=== PATIENT | male | born 1975 | race Asian ===

== ENCOUNTER 2023-04-06 10:28 | Outpatient (CLI) | payer BC | END 2023-04-06 10:29 | disposition home or self-care (01) | LOC: CSHLAB 10:28 | PROVIDERS: ATTEND Otolaryngology Otolaryngic Allergy | DX: Z01.818 Encounter for other preprocedural examination (principal); J32.4 Chronic pansinusitis | CPT/HCPCS: 93005; 93010 ==

== ENCOUNTER 2023-04-13 09:31 | Day surgery (SDC) | payer BC ==
[2023-04-06 10:56] VITALS: BMI 27.6
[2023-04-13] MEDS ORDERED: Glycopyrrolate 0.2 MG/ML 5 ML SYRINGE ONE (10:13)
[2023-04-13] MEDS ORDERED: PROPOFOL 20 ML ONE (10:13)
[2023-04-13] MEDS ORDERED: Rocuronium Bromide 10 MG/ML (10ML VIAL) ONE (10:13)
[2023-04-13] MEDS ORDERED: Fentanyl 250 MCG/5 ML VIAL ONE (10:13)
[2023-04-13] MEDS ORDERED: Midazolam HCl 2 mg/2 ml Vial ONE (10:13)
[2023-04-13] MEDS ORDERED: Ondansetron PF 4 MG/2 ML Vial ONE (10:14)
[2023-04-13] MEDS ORDERED: Lidocaine 2% PF 5 ML VIAL ONE (10:15)
[2023-04-13] MEDS ORDERED: Dexamethasone 20 MG/5 ML VIAL ONE (10:15)
[2023-04-13] MEDS ORDERED: Acetaminophen 500 MG TAB ONE (10:31)
[2023-04-13] MEDS ORDERED: Oxymetazoline HCl 0.05% ( 15 ML ) ONE (10:41)
[2023-04-13] MEDS ORDERED: CEFAZOLIN 2 GM VIAL ONE (11:15)
[2023-04-13] MEDS ORDERED: EPINEPHrine 1 MG/ML AMP ONE ×2 (11:20)
[2023-04-13] MEDS ORDERED: Lidocaine 1% w/Epinephrine 1:100K 20 ML VIAL ONE (12:32)
[2023-04-13] MEDS ORDERED: Triamcinolone 40 MG/ML VIAL ONE (13:23)
== END 2023-04-13 14:55 | disposition home or self-care (01) ==
LOC: CSHSDC 09:31
PROVIDERS: ATTEND Otolaryngology Otolaryngic Allergy
PROC: 09BS8ZZ Excision of Right Frontal Sinus, Via Natural or Artificial Opening Endoscopic (ICD-10-PCS; principal; 2023-04-13)
PROC: 09BT8ZZ Excision of Left Frontal Sinus, Via Natural or Artificial Opening Endoscopic (ICD-10-PCS; principal; 2023-04-13)
DX: J32.4 Chronic pansinusitis (principal); Z79.82 Long term (current) use of aspirin; Z79.899 Other long term (current) drug therapy
CPT/HCPCS: 88305; 88311; J0171; J1100; J2001; J2250; J2405; J2704; J3010; J3301